=== PATIENT | female | born 1970 | race Caucasian/White ===

== ENCOUNTER 2017-10-23 08:09 | Outpatient (CLI) | payer BC ==
--- NOTE | 2017-10-23 09:37 | MMO ---
BILATERAL SCREENING MAMMOGRAMS: DATE: 10/23/17 Reference made to prior mammograms dating back to October 2011. This patient's mammogram was interpreted with the assistance of computer-aided detection. FINDINGS: There is heterogeneously dense breast parenchyma bilaterally, limiting sensitivity of mammography. There is an asymmetric density of the middle depth lower left breast on MLO view, not confirmed on CC projection. IMPRESSION: BIRADS 0: Incomplete: Need Additional Imaging Evaluation and/or Prior Mammograms for Comparison Recommend diagnostic left mammogram and, if necessary, left breast ultrasound, to further evaluate as ymmetric density of the middle lower left breast. The facility will notify the patient of the need for additional imaging services. POS: [facility]
[2017-10-23 12:36] LABS: Progesterone 2.2 ng/mL
== END 2017-10-23 08:10 | disposition home or self-care (01) ==
LOC: SCSMAMMO 08:09
PROVIDERS: ATTEND Family Medicine
DX: Z12.31 Encounter for screening mammogram for malignant neoplasm of breast (principal); N95.9 Unspecified menopausal and perimenopausal disorder; R53.82 Chronic fatigue, unspecified
CPT/HCPCS: 36415; 77067; 82670; 83001; 83002; 84144

== ENCOUNTER 2017-11-10 13:53 | Outpatient (CLI) | payer BC | END 2017-11-10 13:54 | disposition home or self-care (01) | LOC: BICMAMMO 13:53 | PROVIDERS: ATTEND Family Medicine | DX: R92.2 Inconclusive mammogram (principal) | CPT/HCPCS: G0279 ==